=== PATIENT | male | born 1960 | race Caucasian/White ===

== ENCOUNTER 2022-08-24 11:44 | Observation (INO) | payer OTHER ==
[2022-08-24 12:00] VITALS: BMI 24.3
[2022-08-24] MEDS ORDERED: KETOROLAC TROMETHAMINE 15 MG/ML VIAL IVPUSH ONE (12:19)
[2022-08-24] MEDS ORDERED: SODIUM CHLORIDE 0.9% 500 ML INFUS.BAG IV ONE (12:21)
[2022-08-24] MEDS ORDERED: KETOROLAC TROMETHAMINE 15 MG/ML VIAL ONE (12:26)
[2022-08-24 13:28] LABS: BASO % 0.2 % (0-2.0); EOS % 0.1 % (0-4.5); HEMOGLOBIN 15.9 GM/dL (11.7-16.9); LYMPH % 5.1 % (8-40); MCH 31.5 pg (25.7-33.7); MCHC 35.4 g/dl (32.0-35.9); MEAN CELL VOLUME 88.9 fl (80-96); MEAN PLT VOLUME 7.9 fl (7.5-11.1); MONO % 8.7 % (3.8-10.2); NEUT % 85.9 % (42.8-82.8); PLATELET COUNT 255 10^3/uL (134-434); RBC 5.06 M/mm3 (4.00-5.60); RDW 12.8 % (11.9-15.9)
[2022-08-24 13:33] LABS: EPI CELLS 12 /uL (0-25.1); HYALINE CASTS 6 /uL (0-3.1); PH,URINE 5.5 (5.0-8.0); URINE APPEARANCE CLOUDY; URINE BACTERIA 39 /uL (0-1359); URINE BILIRUBIN NEGATIVE (NEGATIVE); URINE COLOR DK YELLOW; URINE GLUCOSE (UA) NEGATIVE (NEGATIVE); URINE KETONE 1+ (NEGATIVE); URINE LEUK ESTERASE NEGATIVE (NEGATIVE); URINE NITRITE NEGATIVE (NEGATIVE); URINE PROTEIN 2+ (NEGATIVE); URINE RBC 437 /uL (0-23.9); URINE UROBILINOGEN 0.2 mg/dL (0.2-1.0); URINE WBC 49 /uL (0-25.8)
[2022-08-24 13:45] LABS: POTASSIUM 3.8 mmol/L (3.5-5.1)
[2022-08-24 13:47] LABS: BLOOD UREA NITROGEN 23.3 mg/dL (7-18)
[2022-08-24 13:48] LABS: ALBUMIN 3.8 g/dl (3.4-5.0)
[2022-08-24 13:51] LABS: CREATININE 1.2 mg/dL (0.55-1.3)
[2022-08-24] MEDS ORDERED: CEFTRIAXONE 1 GM in DEXTROSE 5%-WATER - 100 ML IVPB ONE (13:51)
[2022-08-24 13:52] LABS: TOT PROT 7.5 g/dl (6.4-8.2)
[2022-08-24 14:20] LABS: ANISOCYTOSIS 0; MACROCYTOSIS 0
[2022-08-24] MEDS ORDERED: KETOROLAC TROMETHAMINE 15 MG/ML VIAL IVPUSH PRN (15:51)
[2022-08-24] MEDS ORDERED: ACETAMINOPHEN 500 MG TABLET (FP) PO PRN (15:52)
[2022-08-24] MEDS ORDERED: CEFTRIAXONE 1 GM/50 ML BAG ONE (15:52)
[2022-08-24] MEDS ORDERED: ONDANSETRON 4 MG/2 ML VIAL IVPUSH PRN (15:52)
[2022-08-24] MEDS ORDERED: SODIUM CHLORIDE 1,000 ML IV SCH (16:00)
[2022-08-24] MEDS ORDERED: TAMSULOSIN HCL 0.4 MG CAP PO SCH (16:30)
[2022-08-24] MEDS ORDERED: LIDOCAINE HCL/PF 2% SDV 5ML VIAL ONE (18:28)
[2022-08-24] MEDS ORDERED: PROPOFOL 20 ML ONE (18:28)
[2022-08-24] MEDS ORDERED: MIDAZOLAM HCL 2 MG/2 ML SINGLE DOSE VIAL ONE (18:29)
[2022-08-24] MEDS ORDERED: ONDANSETRON 4 MG/2 ML VIAL ONE (18:49)
[2022-08-24] MEDS ORDERED: DEXAMETHASONE SOD PHOSPHATE 4 MG/1 ML VIAL ONE (18:49)
[2022-08-24] MEDS ORDERED: KETOROLAC TROMETHAMINE 30 MG/1 ML VIAL ONE (18:49)
[2022-08-24] MEDS ORDERED: ACETAMINOPHEN 325 MG TABLET (FP) PO PRN (19:20)
[2022-08-24] MEDS ORDERED: LACTATED RINGERS SOLUTION 1,000 ML IV SCH (19:30)
[2022-08-24 20:03] VITALS: RESP 15
[2022-08-24 20:37] VITALS: BP 112/78; PULSE 51; TEMP 98.1
[2022-08-24] MEDS ORDERED: ATENOLOL 50 MG TABLET (FP) PO SCH (22:00)
[2022-08-25] MEDS ORDERED: CEFTRIAXONE 1 GM in DEXTROSE 5%-WATER - 50 ML IVPB SCH (10:00)
[2022-08-25] MEDS ORDERED: HYDROCHLOROTHIAZIDE 25 MG TABLET (FP) PO SCH (10:00)
== END 2022-08-24 22:39 | disposition home or self-care (01) ==
LOC: JER 11:44 → UNDOADMIN 15:17 → JERBED 15:17 → J8W 15:49 → JERBED 20:48 → UNDOADMOB 20:49 → J8W 20:49 → INTOOBSV 20:49 → J8W 20:50 → UNDODISOB 22:39
PROVIDERS: ADMIT Internal Medicine; ATTEND Internal Medicine
PROC: 3E0337Z Introduction of Electrolytic and Water Balance Substance into Peripheral Vein, Percutaneous Approach (ICD-10-PCS; 2022-08-24)
PROC: 0T768DZ Dilation of Right Ureter with Intraluminal Device, Via Natural or Artificial Opening Endoscopic (ICD-10-PCS; principal; 2022-08-24 17:30)
PROC: 3E03329 Introduction of Other Anti-infective into Peripheral Vein, Percutaneous Approach (ICD-10-PCS; 2022-08-24 17:30)
PROC: 3E0333Z Introduction of Anti-inflammatory into Peripheral Vein, Percutaneous Approach (ICD-10-PCS; 2022-08-24 17:30)
DX: N13.1 Hydronephrosis with ureteral stricture, not elsewhere classified (principal); N20.9 Urinary calculus, unspecified; N17.9 Acute kidney failure, unspecified; I10 Essential (primary) hypertension
CPT/HCPCS: 0241U-QW; 36415; 74176-TC; 76000-TC-FY; 80053; 81003; 85025; 87040; 87086; 93005; 93010; 94760; 96361; 96365; 96375; 99285-25; C1758; C1894; C2617; G0378

== ENCOUNTER 2022-09-27 03:49 | Day surgery (SDC) | payer OTHER ==
[2022-09-22 11:14] VITALS: BMI 24.3
[2022-09-27] MEDS ORDERED: MIDAZOLAM HCL 2 MG/2 ML SINGLE DOSE VIAL ONE (14:17)
[2022-09-27] MEDS ORDERED: LIDOCAINE HCL/PF 2% SDV 5ML VIAL ONE (14:22)
[2022-09-27] MEDS ORDERED: PROPOFOL 20 ML ONE (14:22)
[2022-09-27 16:24] VITALS: RESP 16; TEMP 97.1
[2022-09-27 16:36] VITALS: BP 130/70; PULSE 50
== END 2022-09-27 16:05 | disposition home or self-care (01) ==
LOC: JASU-SURG 03:49
PROVIDERS: ATTEND Urology
PROC: 0TF6XZZ Fragmentation in Right Ureter, External Approach (ICD-10-PCS; principal; 2022-09-27 13:30)
DX: N20.1 Calculus of ureter (principal)

== ENCOUNTER 2022-10-10 04:52 | Day surgery (SDC) | payer OTHER ==
[2022-10-07 17:59] VITALS: BMI 24.3
[2022-10-10] MEDS ORDERED: ONDANSETRON 4 MG/2 ML VIAL IVPUSH PRN (12:26)
[2022-10-10] MEDS ORDERED: LACTATED RINGERS SOLUTION 1,000 ML IV SCH (12:30)
[2022-10-10] MEDS ORDERED: PROPOFOL 20 ML ONE (12:54)
[2022-10-10] MEDS ORDERED: MIDAZOLAM HCL 2 MG/2 ML SINGLE DOSE VIAL ONE (12:54)
[2022-10-10] MEDS ORDERED: IOHEXOL 300 MG/ML INFUS..BTL IV ONE (13:30)
[2022-10-10 17:04] VITALS: RESP 18
[2022-10-10 17:37] VITALS: BP 144/83; PULSE 64; TEMP 97.5
== END 2022-10-10 18:08 | disposition home or self-care (01) ==
LOC: JASU-SURG 04:52
PROVIDERS: ATTEND Urology
PROC: 0TC08ZZ Extirpation of Matter from Right Kidney, Via Natural or Artificial Opening Endoscopic (ICD-10-PCS; principal; 2022-10-10 11:00)
PROC: 0T768DZ Dilation of Right Ureter with Intraluminal Device, Via Natural or Artificial Opening Endoscopic (ICD-10-PCS; 2022-10-10 11:00)
PROC: 0TP98DZ Removal of Intraluminal Device from Ureter, Via Natural or Artificial Opening Endoscopic (ICD-10-PCS; 2022-10-10 11:00)
DX: N20.1 Calculus of ureter (principal)
CPT/HCPCS: 36415; 76000-TC-FY; 82360; 88300-TC; 94760; C1758; C2617

== ENCOUNTER 2023-02-13 05:10 | Day surgery (SDC) | payer OTHER ==
[2023-02-09 15:29] VITALS: BMI 24.3
[2023-02-13 09:30] VITALS: PULSE 48; RESP 20
[2023-02-13] MEDS ORDERED: MIDAZOLAM HCL 2 MG/2 ML SINGLE DOSE VIAL ONE (12:18)
[2023-02-13] MEDS ORDERED: FENTANYL CITRATE/PF 50 MCG/ML VIAL ONE ×2 (12:18→12:42)
[2023-02-13 14:35] VITALS: BP 134/73; TEMP 98.8
== END 2023-02-13 14:38 | disposition home or self-care (01) ==
LOC: JASU-SURG 05:10
PROVIDERS: ATTEND Urology
PROC: 0TF4XZZ Fragmentation in Left Kidney Pelvis, External Approach (ICD-10-PCS; principal; 2023-02-13 11:30)
DX: N20.0 Calculus of kidney (principal)